=== PATIENT | female | born 1940 | race Caucasian/White ===

== ENCOUNTER 2023-08-18 19:51 | Observation (INO) | payer MEDICARE, OTHER ==
[2023-08-18] MEDS ORDERED: NITROGLYCERIN OINT 1 INCH/GM PACKET TOPICAL STA (20:09)
[2023-08-18] MEDS ORDERED: ASPIRIN 81 MG PO STA (20:09)
[2023-08-18 20:31] LABS: Basophils % (A) 1 %; Eosinophils # (A) 0.3 k/uL (0-0.7); Eosinophils % (A) 3 %; HCT 32.8 % (34.0-46.0); HGB 10.6 gm/dL (11.4-16.0); Lymphocytes % (A) 34 %; MCH 29.5 pg (25.0-35.0); MCHC 32.2 g/dL (31.0-37.0); MCV 91.4 fL (80.0-100.0); Mean Platelet Volume 8.1; Monocytes # (A) 0.4 k/uL (0-1.0); Monocytes % (A) 5 %; Neutrophils # (A) 4.9 k/uL (1.3-7.7); Neutrophils % (A) 56 %; Platelet Count 245 k/uL (150-450); RBC 3.58 m/uL (3.80-5.40); RDW 14.4 % (11.5-15.5); WBC 8.8 k/uL (3.8-10.6)
[2023-08-18 20:45] LABS: ALT 13 U/L (4-34); African American GFR (CKD) 75 (>60 ml/min/1.73 sqM); Albumin 3.2 g/dL (3.5-5.0); Anion Gap 11 mmol/L; Blood Urea Nitrogen 26 mg/dL (7-17); Calcium 8.4 mg/dL (8.4-10.2); Carbon Dioxide 26 mmol/L (22-30); Chloride 98 mmol/L (98-107); Glucose 175 mg/dL (74-99); Non-African American GFR(CKD) 65 (>60 ml/min/1.73 sqM); Sodium 135 mmol/L (137-145); Total Bilirubin 0.3 mg/dL (0.2-1.3); Total Protein 5.9 g/dL (6.3-8.2)
[2023-08-18 20:51] LABS: AST 29 U/L (14-36); Alkaline Phosphatase 79 U/L (38-126); INR 0.9 (<1.2); Potassium 3.9 mmol/L (3.5-5.1); Prothrombin Time 10.3 sec (10.0-12.5)
[2023-08-18 20:52] LABS: Magnesium 1.8 mg/dL (1.6-2.3)
[2023-08-18 20:53] LABS: NT-Pro-B-Type Natriuretic Pept 481 pg/mL
[2023-08-18 21:04] LABS: Partial Thromboplastin Time 19.4 sec (22.0-30.0)
--- NOTE | 2023-08-18 21:04 | XR ---
EXAMINATION TYPE: XR chest 2V DATE OF EXAM: 08/18/2023 8:45 PM CLINICAL INDICATION:Female, 83 years old with history of Chest Pain; PHH COMPARISON: None TECHNIQUE: XR chest 2V Frontal and lateral views of the chest. FINDINGS: Lungs/Pleura: There is no evidence of pleural effusion, focal consolidation, or pneumothorax. Pulmonary vascularity: Unremarkable. Heart/mediastinum: Cardiomediastinal silhouette is unremarkable. Atherosclerotic calcifications are seen in the aorta. Two lead cardiac conduction device overlying the left hemithorax with lead tips pr ojecting over the right ventricle and right atrium. Musculoskeletal: No acute osseous pathology. Midline sternotomy wires and surgical clips project over the mediastinum. IMPRESSION: Cardiomegaly and mild pulmonary vascular congestion. Correlate with BNP for congestive heart failure.
[2023-08-18] MEDS ORDERED: methylPREDNISolone SOD SUCCI 125 MG/2 ML VIAL IV STA (21:27)
[2023-08-18] MEDS ORDERED: diphenhydrAMINE 50 MG/ML 1 ML VIAL IVP STA (21:27)
--- NOTE | 2023-08-18 22:23 | CT ---
EXAMINATION TYPE: CT angio chest CT DLP: 551.2 mGycm, Automated exposure control for dose reduction was used. DATE OF EXAM: 08/18/2023 9:55 PM COMPARISON: Chest radiograph same day. CLINICAL INDICATION:Female, 83 years old with history of pulmonary embolism suspected; Suspected PE. TECHNIQUE/CONTRAST: CTA scan of the thorax is performed with IV Contrast, patient injected with 100 ml mL of Isovue 300, MIP images are created and reviewed these are created on a separate workstation.. FINDINGS: Pulmonary Artery: There is no evidence for a filling defect within the pulmonary vasculature to sugge st acute pulmonary embolism. The pulmonary artery is of normal size. Lungs/Pleura: No evidence of focal consolidation, pleural effusion or pneumothorax. Airway: Large airways are patent. Heart: Heart is within normal limits for size. There is cardiac conduction leads in appropriate posit ion. Left atrial appendage occlusion device is present. Vasculature: No evidence of aortic aneurysm. Mediastinum: No gross evidence of adenopathy. Musculoskeletal: Severe degenerative disc disease changes are present throughout the thoracolumbar sp ine.severe degeneration changes of the shoulders. Soft Tissues: Unremarkable. Lower neck: No significant findings. Upper Abdomen: No significant findings. IMPRESSION: 1. No evidence of pulmonary embolism. 2. No evidence for acute thoracic process. 3. Severe degeneration changes of the spine. 4. Postsurgical change the heart. Follow up recommendations for incidental pulmonary nodules, if there are any, are per [employer] or [employer].
--- NOTE | 2023-08-18 22:33 | ED ---
Chest Pain HPI - General Chief Complaint: Chest Pain Stated Complaint: Chest Pain Time Seen by Provider: 08/18/23 19:58 Source: patient, EMS Mode of arrival: EMS Limitations: no limitations - History of Present Illness Initial Comments: This 83-year-old female presents with complaint of some chest pain. She states that it just started this evening. It was a sharp pain in the midsternal region. There is no radiation. She denies any shortness of breath. It occurred at rest. She does relate a history of cardiac disease. She had a three-vessel CABG in 1995. She cannot remember the last time she had a stress test. 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 She does complain of some chronic right leg pain and swelling which is unchanged. She denies any cough or fever. No other complaints or modifying factors. She does present via EMS and they gave her sublingual nitroglycerin which resolved her chest pain. Also receives an aspirin via EMS. - Related Data Home Medications Medication Instructions Recorded Confirmed ARIPiprazole [Abilify] 5 mg PO DAILY@0800 08/18/23 08/18/23 Acetaminophen [Tylenol Extra 500 mg PO TID@0600,1400,2200 08/18/23 08/18/23 Strength] Acetaminophen-Codeine 300-30mg 1 tab PO HS@199908/18/23 08/18/23 [Tylenol w/codeine #3] Acetaminophen-Codeine 300-30mg 1 tab PO Q8H PRN 08/18/23 08/18/23 [Tylenol w/codeine #3] Aspirin 81 mg PO DAILY@0800 08/18/23 08/18/23 Atorvastatin [Lipitor] 20 mg PO HS@199908/18/23 08/18/23 Cholecalciferol [Vitamin D3 (25 25 mcg PO DAILY@0800 08/18/23 08/18/23 Mcg = 1000 Iu)] DULoxetine HCL [Cymbalta] 60 mg PO DAILY@0800 08/18/23 08/18/23 Docusate Sodium [Dok] 100 mg PO BID@0800,1600 08/18/23 08/18/23 Donepezil [Aricept] 10 mg PO HS@199908/18/23 08/18/23 Dulaglutide [Trulicity] 1.5 mg SQ SA 08/18/23 08/18/23 EPINEPHrine (Auto Inject) [Epipen] 0.3 mg IM ONCE PRN 08/18/23 08/18/23 Famotidine [Pepcid] 20 mg PO DAILY@0800 08/18/23 08/18/23 Furosemide [Lasix] 20 mg PO DAILY@0800 08/18/23 08/18/23 Gabapentin [Neurontin] 100 mg PO TID@0600,1400,2200 08/18/23 08/18/23 Insulin Glargine,Hum.rec.anlog 22 units SQ HS@199908/18/23 08/18/23 [Lantus Solostar Pen] Losartan [Cozaar] 25 mg PO DAILY@0800 08/18/23 08/18/23 Magnesium Hydroxide [Milk of 2,400 mg PO DAILY PRN 08/18/23 08/18/23 Magnesia] Magnesium Oxide [Mag-Ox] 400 mg PO BID@0800,1600 08/18/23 08/18/23 Melatonin 5 mg PO HS@219908/18/23 08/18/23 Multivitamins, Thera [Multivitamin 1 tab PO DAILY@0800 08/18/23 08/18/23 (formulary)] NIFEdipine [Adalat CC] 30 mg PO DAILY@0800 08/18/23 08/18/23 Nitroglycerin Sl Tabs [Nitrostat] 0.4 mg SUBLINGUAL Q5M PRN 08/18/23 08/18/23 allopurinoL [Zyloprim] 100 mg PO BID@0800,1600 08/18/23 08/18/23 cycloSPORINE 0.05% OPHTH SOLN 1 applicator BOTH EYES 08/18/23 08/18/23 [Restasis] BID@0800,1999 oxyBUTYnin chloride [oxyBUTYnin 5 mg PO DAILY@0800 08/18/23 08/18/23 chloride ER] rOPINIRole HCL [Requip] 4 mg PO TID@0600,1400,2200 08/18/23 08/18/23 Allergies Allergy/AdvReac Type Severity Reaction Status Date / Time adhesive tape Allergy Unknown Verified 08/18/23 20:13 bee venom protein (honey bee) Allergy Unknown Verified 08/18/23 20:13 coffee (Coffea arabica) Allergy Unknown Verified 08/18/23 20:13 hydrocodone Allergy Rash/Hives Verified 08/18/23 20:13 Iodinated Contrast Media Allergy Unknown Verified 08/18/23 20:13 pregabalin [From Lyrica] Allergy Unknown Verified 08/18/23 20:13 tositumomab iodine-131 Allergy Unknown Verified 08/18/23 20:13 tramadol Allergy Unknown Verified 08/18/23 20:13 tree nut [Pecan] Allergy Unknown Verified 08/18/23 20:13 seafood Allergy Swelling Uncoded 08/18/23 21:13 Review of Systems ROS Statement: Those systems with pertinent positive or pertinent negative responses have been documented in the HPI. ROS Other: All systems not noted in ROS Statement are negative. Past Medical History Past Medical History: Myocardial Infarction ([place]) Additional Past Medical History / Comment(s): [place] 1995 History of Any Multi-Drug Resistant Organisms: MRSA Past Surgical History: Adenoidectomy, Appendectomy Smoking Status: Never smoker Past Alcohol Use History: None Reported Past Drug Use History: None Reported General Exam - General Exam Comments Initial Comments: GENERAL: The patient is well nourished and well hydrated. VITAL SIGNS: Heart rate, blood pressure, respiratory rate reviewed as recorded in nurse's notes. EYES: Pupils are round and reactive. Extraocular movements are intact. No conjunctival / lid redness or swelling. ENT: No external evidence of injury, swelling, or ecchymosis. Airway is patent. Throat is clear. NECK: Nontender. No swelling or evidence of injury. No subcutaneous emphysema. Trachea is midline. No thyroid mass. HEART: Regular rate and rhythm. Good peripheral pulses. LUNGS/CHEST: Breath sounds clear and equal bilaterally. No rales, rhonchi, or wheezes. No ecchymosis, subcutaneous emphysema, or tenderness. ABDOMEN: Abdomen soft without tenderness. No palpable masses or organomegaly. No peritoneal signs. No abdominal wall swelling or ecchymosis. EXTREMITIES: No extremity tenderness. Normal muscle tone and function. No thoracolumbar tenderness. NEUROLOGIC: Sensation is grossly intact. Cranial nerve exam reveals face is symmetrical, tongue is midline, speech is clear. SKIN: No abrasions or ecchymosis is noted. No induration or masses noted. PSYCHIATRIC: Alert and oriented. Appropriate behavior and judgment. Limitations: no limitations Course Vital Signs 08/18/23 08/18/23 19:54 21:38 Temperature 97.7 F Pulse Rate 77 71 Respiratory 19 19 Rate Blood Pressure 139/60 140/56 O2 Sat by Pulse 99 99 Oximetry Chest Pain [facility] The patient was seen and examined. All diagnostics are reviewed. The patient is placed on a jet operator and no ectopy is identified. The EKG does show an electronic atrial pacemaker. Heart rate is 80. There is no acute ST or T wave changes noted per my interpretation. The intervals are normal except for an elevated NM interval of 229. She does receive some Nitropaste and remains chest pain-free. The chest x-ray doesn't show any acute processes per my interpretation. The laboratory came back showing elevation of the d-dimer. A CT angiogram of the chest was done and this does not show any evidence of pulmonary embolism. The possibility of acute coronary syndrome certainly is plausible. She has not had a cardiac workup and quite some time. It is felt as though she benefit from admission to the hospital and further cardiac workup. The patient is agreeable. Case is discussed with internal medicine and they're agreeable with admission. Cardiology will be consulted. Was pt. sent in by a medical professional or institution (, PA, ORDER EXPEDITER, urgent care, hospital, or senior living...) When possible be specific @ -[No] Did you speak to anyone other than the patient for history (EMS, parent, family, police, friend...)? What history was obtained from this source @ -[No] Did you review nursing and triage notes (agree or disagree)? Why? @ -[I reviewed and agree with nursing and triage notes] Were old charts reviewed (outside hosp., previous admission, EMS record, old EKG, old radiological studies, urgent care reports/EKG's, senior living records)? Report findings @ -[No old charts were reviewed] Differential Diagnosis (chest pain, altered mental status, abdominal pain women, abdominal pain men, vaginal bleeding, weakness, fever, dyspnea, syncope, headache, dizziness, GI bleed, back pain, seizure, CVA, palpatations, mental health, musculoskeletal)? @ -Pulmonary embolism, musculoskeletal chest pain, costochondritis, unstable angina, acute coronary syndrome. EKG interpreted by me (3pts min.). @ -[As above] X-rays interpreted by me (1pt min.). @ -As above CT interpreted by me (1pt min.). @ -As above U/S interpreted by me (1pt. min.). @ -[None done] What testing was considered but not performed or refused? (CT, X-rays, U/S, labs)? Why? @ -[None] What meds were considered but not given or refused? Why? @ -[None] Did you discuss the management of the patient with other professionals (professionals i.e. , PA, ORDER EXPEDITER, lab, RT, psych nurse, high school social studies tutor, patent litigation associate, teacher, tactical intelligence officer, case management assistant)? Give summary @ -Is discussed with internal medicine. Was smoking cessation discussed for >3mins.? @ -[No] Was critical care preformed (if so, how long)? @ -[No] Were there social determinants of health that impacted care today? How? (Homelessness, low income, unemployed, alcoholism, drug addiction, transportation, low edu. Level, literacy, decrease access to med. care, half-way, rehab)? @ -[No] Was there de-escalation of care discussed even if they declined (Discuss DNR or withdrawal of care, Hospice)? DNR status @ -[No] What co-morbidities impacted this encounter? (DM, HTN, Smoking, COPD, CAD, Cancer, CVA, ARF, Chemo, Hep., AIDS, mental health diagnosis, sleep apnea, morbid obesity)? @ -Coronary artery disease. Was patient admitted / discharged? Hospital course, mention meds given and route, prescriptions, significant lab abnormalities, going to OR and other pertinent info. @ -She was admitted, see above Undiagnosed new problem with uncertain prognosis? @ -[No] Drug Therapy requiring intensive monitoring for toxicity (Heparin, Nitro, Insulin, Cardizem)? @ -[No] Were any procedures done? @ -[No] Diagnosis/symptom? @ -Chest pain, unstable angina Acute, or Chronic, or Acute on Chronic? @ -Acute and chronic Uncomplicated (without systemic symptoms) or Complicated (systemic symptoms)? @ -Complicated Side effects of treatment? @ -[No] Exacerbation, Progression, or Severe Exacerbation? @ -[No] Poses a threat to life or bodily function? How? (Chest pain, [place], [place], pneumonia, PE, COPD, DKA, ARF, appy, cholecystitis, CVA, Diverticulitis, Homicidal, Suicidal, threat to staff... and all critical care pts) @ -Potentially yes. Disposition Clinical Impression: Chest pain, Unstable angina pectoris Disposition: ADMITTED IP TO THIS HOSP Condition: Fair Is patient prescribed a controlled substance at d/c from ED?: No Time of Disposition: 22:40 Decision Date: 08/18/23 Decision Time: 22:40
[2023-08-18] MEDS ORDERED: NITROGLYCERIN SL TABS 0.4 MG TAB SUBLINGUAL PRN (22:41)
[2023-08-18] MEDS ORDERED: Acetaminophen-Codeine 300-30mg TAB PO PRN (22:43)
[2023-08-18] MEDS ORDERED: MAGNESIUM HYDROXIDE 2,400 MG/30 ML CUP PO PRN (22:43)
[2023-08-18] MEDS: NITROGLYCERIN OINT 1 INCH/GM PACKET TOPICAL SCH (23:43)
[2023-08-19] MEDS ORDERED: ATORVASTATIN 80 MG TAB PO STA (01:04)
--- NOTE | 2023-08-19 01:05 | P.HPIM ---
History of Present Illness H&P Date: 08/19/23 Patient is a 83-year-old female with a PMH of CAD status post CABG, type II DM, hypertension, hyperlipidemia who presents to the emergency room with complaints of chest discomfort. Patient reports that she was in her usual state of health until around 5 PM earlier today when she suddenly developed the chest tightness, substernal, nonradiating, 8 out of 10 on maximal intensity, with associated bk rtness of breath. She reports the pain improved significantly with sublingual nitroglycerin and gradually resolved over the next few hours. She reported feeling at her baseline at the time of interview. Denied experiencing fever, chills, cough. Also denied nausea, vomiting, abdominal pain, diarrhea. In the emergency room a chest CTA was unremarkable with EKG showing a-paced rhythm at [address]/T-wave changes noted as reviewed by me. Laboratory evaluation was remarkable for troponin less than 0.012, proBNP 481, glucose 175, BUN 26, creatinine 0.84, d-dimer 1.07, and hemoglobin 10.6 (no prior available for baseline comparison). ED documentation reviewed and case discussed with ED provider. Review of systems: Pertinent positives and negatives as discussed in HPI, a complete review of systems was performed and all other systems are negative. Physical examination: Vital signs reviewed General: non toxic, no distress, appears at stated age, obese Derm: no unusual rashes/lesions, warm Head: atraumatic, normocephalic, symmetric Eyes: EOMI, no lid lag, anicteric sclera, pupils equal round reactive to light ENT: Nose and ears atraumatic Neck: No cervical lymphadenopathy, trachea midline, supple Mouth: no lip lesion, mucus membranes moist Cardiovascular: S1S2 reg, no murmur, positive dorsalis pedis pulse bilateral, no edema Lungs: CTA bilateral, no rhonchi, no rales, no accessory muscle use Abdominal: soft, nontender to palpation, no guarding Ext: muscle strength 5 out of 5 in all 4 extremities grossly, no gross muscle atrophy, no contractures, Neuro: CN II-XI grossly intact, no gross focal neuro deficits Psych: Alert, oriented, appropriate affect Assessment: Chest pain, rule out ACS Chronic conditions: Type II DM, hypertension, hyperlipidemia Imaging: In the emergency room a chest CTA was unremarkable with EKG showing a-paced rhythm at [address]/T-wave changes noted as reviewed by me. Data Review: Laboratory evaluation was remarkable for troponin less than 0.012, proBNP 481, glucose 175, BUN 26, creatinine 0.84, d-dimer 1.07, and hemoglobin 10.6 (no prior available for baseline comparison). Plan: Cardiology consulted Cardiac monitoring Trend troponin Continue with aspirin and Lipitor Continue with home medications Insulin sliding scale with blood glucose monitoring DVT prophylaxis: Lovenox Subq The patient is admitted with an anticipated less than 2 midnight stay for evaluation of chest pain CODE STATUS: Full Code Discussed with: Patient Anticipated discharge place: Home Past Medical History Past Medical History: Myocardial Infarction ([place]) Additional Past Medical History / Comment(s): [place] 1995 Last Myocardial Infarction Date:: unknown History of Any Multi-Drug Resistant Organisms: MRSA Date of last positivie culture/infection: ukklauswn MDRO Source:: unknown Past Surgical History: Adenoidectomy, Appendectomy Smoking Status: Never smoker Past Alcohol Use History: None Reported Past Drug Use History: None Reported Medications and Allergies Home Medications Medication Instructions Recorded Confirmed Type ARIPiprazole [Abilify] 5 mg PO DAILY@0800 08/18/23 08/18/23 History Acetaminophen [Tylenol Extra 500 mg PO TID@0600,1400,2200 08/18/23 08/18/23 History Strength] Acetaminophen-Codeine 300-30mg 1 tab PO HS@199908/18/23 08/18/23 History [Tylenol w/codeine #3] Acetaminophen-Codeine 300-30mg 1 tab PO Q8H PRN 08/18/23 08/18/23 History [Tylenol w/codeine #3] Aspirin 81 mg PO DAILY@0800 08/18/23 08/18/23 History Atorvastatin [Lipitor] 20 mg PO HS@199908/18/23 08/18/23 History Cholecalciferol [Vitamin D3 (25 25 mcg PO DAILY@0800 08/18/23 08/18/23 History Mcg = 1000 Iu)] DULoxetine HCL [Cymbalta] 60 mg PO DAILY@0800 08/18/23 08/18/23 History Docusate Sodium [Dok] 100 mg PO BID@0800,1600 08/18/23 08/18/23 History Donepezil [Aricept] 10 mg PO HS@199908/18/23 08/18/23 History Dulaglutide [Trulicity] 1.5 mg SQ SA 08/18/23 08/18/23 History EPINEPHrine (Auto Inject) [Epipen] 0.3 mg IM ONCE PRN 08/18/23 08/18/23 History Famotidine [Pepcid] 20 mg PO DAILY@0800 08/18/23 08/18/23 History Furosemide [Lasix] 20 mg PO DAILY@0800 08/18/23 08/18/23 History Gabapentin [Neurontin] 100 mg PO TID@0600,1400,2200 08/18/23 08/18/23 History Insulin Glargine,Hum.rec.anlog 22 units SQ HS@199908/18/23 08/18/23 History [Lantus Solostar Pen] Losartan [Cozaar] 25 mg PO DAILY@0800 08/18/23 08/18/23 History Magnesium Hydroxide [Milk of 2,400 mg PO DAILY PRN 08/18/23 08/18/23 History Magnesia] Magnesium Oxide [Mag-Ox] 400 mg PO BID@0800,1600 08/18/23 08/18/23 History Melatonin 5 mg PO HS@219908/18/23 08/18/23 History Multivitamins, Thera [Multivitamin 1 tab PO DAILY@0800 08/18/23 08/18/23 History (formulary)] NIFEdipine [Adalat CC] 30 mg PO DAILY@0800 08/18/23 08/18/23 History Nitroglycerin Sl Tabs [Nitrostat] 0.4 mg SUBLINGUAL Q5M PRN 08/18/23 08/18/23 History allopurinoL [Zyloprim] 100 mg PO BID@0800,1600 08/18/23 08/18/23 History cycloSPORINE 0.05% OPHTH SOLN 1 applicator BOTH EYES 08/18/23 08/18/23 History [Restasis] BID@08,1999 oxyBUTYnin chloride [oxyBUTYnin 5 mg PO DAILY@0800 08/18/23 08/18/23 History chloride ER] rOPINIRole HCL [Requip] 4 mg PO TID@0600,1400,2200 08/18/23 08/18/23 History Allergies Allergy/AdvReac Type Severity Reaction Status Date / Time adhesive tape Allergy Unknown Verified 08/18/23 20:13 bee venom protein (honey bee) Allergy Unknown Verified 08/18/23 20:13 coffee (Coffea arabica) Allergy Unknown Verified 08/18/23 20:13 hydrocodone Allergy Rash/Hives Verified 08/18/23 20:13 Iodinated Contrast Media Allergy Unknown Verified 08/18/23 20:13 pregabalin [From Lyrica] Allergy Unknown Verified 08/18/23 20:13 tositumomab iodine-131 Allergy Unknown Verified 08/18/23 20:13 tramadol Allergy Unknown Verified 08/18/23 20:13 tree nut [Pecan] Allergy Unknown Verified 08/18/23 20:13 seafood Allergy Swelling Uncoded 08/18/23 21:13 Physical Exam Vitals: Vital Signs Temp Pulse Resp BP Pulse Ox 08/18/23 21:38 71 19 140/56 99 08/18/23 19:54 97.7 F 77 19 139/60 99 Intake and Output 08/18/23 08/18/23 08/19/23 14:59 22:59 06:59 Other: Weight 81.647 kg Results CBC & Chem 7: 08/18/23 20:14 08/18/23 20:14 Labs: Abnormal Lab Results - Last 24 Hours (Table) 08/18/23 08/18/23 08/18/23 Range/Units 20:14 20:14 20:14 RBC 3.58 L (3.80-5.40) m/uL Hgb 10.6 L (11.4-16.0) gm/dL Hct 32.8 L (34.0-46.0) % APTT 19.4 L (22.0-30.0) sec D-Dimer 1.07 H (<0.60) mg/L FEU Sodium 135 L (137-145) mmol/L BUN 26 H (7-17) mg/dL Glucose 175 H (74-99) mg/dL Total Protein 5.9 L (6.3-8.2) g/dL Albumin 3.2 L (3.5-5.0) g/dL
[2023-08-19] MEDS: ACETAMINOPHEN TAB 500 MG TAB PO SCH ×2 (05:36→13:47)
[2023-08-19] MEDS: rOPINIRole HCL 4 MG TABLET PO SCH ×2 (05:36→16:18)
[2023-08-19] MEDS: GABAPENTIN 100 MG CAP PO SCH ×2 (05:36→13:48)
[2023-08-19] MEDS: NITROGLYCERIN OINT 1 INCH/GM PACKET TOPICAL SCH (05:48)
[2023-08-19 07:50] LABS: Glucose,Whole Blood 262 mg/dL (70-110)
[2023-08-19] MEDS ORDERED: cycloSPORINE 0.05% OPHTH 0.4 ML DROPERETTE BOTH EYES SCH (08:00)
[2023-08-19] MEDS ORDERED: FAMOTIDINE 20 MG TAB PO SCH (08:00)
[2023-08-19] MEDS ORDERED: OXYBUTYNIN XL 5 MG TAB.ER.24 PO SCH (08:00)
[2023-08-19] MEDS ORDERED: ARIPiprazole 5 MG TAB PO SCH (08:00)
[2023-08-19] MEDS ORDERED: MULTIVITAMINS, THERA 1 EACH TAB PO SCH (08:00)
[2023-08-19] MEDS ORDERED: ASPIRIN 81 MG PO SCH (08:00)
[2023-08-19] MEDS ORDERED: CHOLECALCIFEROL 25 MCG (1000 IU) TABLET PO SCH (08:00)
[2023-08-19] MEDS ORDERED: FUROSEMIDE 20 MG TAB PO SCH (08:00)
[2023-08-19] MEDS ORDERED: DULoxetine HCL 60 MG CAPSULE.DR PO SCH (08:00)
[2023-08-19] MEDS ORDERED: LOSARTAN 25 MG TAB PO SCH (08:00)
[2023-08-19] MEDS ORDERED: NIFEdipine XL 30 MG TAB.ER.24 PO SCH (08:00)
[2023-08-19] MEDS ORDERED: AMINOPHYLLINE 500 MG/20 ML VIAL IV PRN (08:30)
[2023-08-19] MEDS ORDERED: CAFFEINE CITRATE 60 MG/3 ML VIAL IV PRN (08:30)
[2023-08-19] MEDS ORDERED: REGADENOSON 0.4 MG/5 ML SYRINGE IV PRN (08:30)
[2023-08-19 08:51] LABS: Chol/HDL Ratio 2.34 Ratio; LDL Cholesterol,Calculated 64.7 mg/dL (0.0-131.0)
[2023-08-19] MEDS ORDERED: ASPIRIN 325 MG TAB PO SCH (09:00)
[2023-08-19] MEDS ORDERED: ENOXAPARIN 40 MG/0.4 ML SYRINGE SQ SCH (09:00)
--- NOTE | 2023-08-19 10:27 | P.CRDCN ---
History of Present Illness History of present illness: HISTORY OF PRESENT ILLNESS: This is a 83-year-old female with a past medical history significant for coronary artery disease with previous three-vessel CABG, congestive heart failure, hypertension, hyperlipidemia, diabetes, and mild dementia. Patient states she has not followed with a product trainer in many years. We have been asked to see the patient in consultation for chest pain. Patient examined at the bedside. Patient states she currently resides at [facility]. She states yesterday she was sitting down when she began to have chest discomfort. She describes the pain as a pressure type sensation like somebody was sitting on her chest. She denied any radiation of the pain. She states the pain lasted for a couple hours and finally resolved when she received sublingual nitro on the way to the hospital. At the time of examination she denies any chest pain or pressure. She denies any shortness of breath. States she is not very active overall. She does report walking with a cane and also uses a wheelchair. Vital signs are stable. * EKG reveals atrial paced rhythm * Chest xray cardiomegaly and mild pulmonary vascular congestion. * Chest CTA: Negative for pulmonary embolism * Laboratory data: Troponin negative 3. ProBNP 481. * Current home cardiac medications include aspirin 81 mg daily, Lasix 20 mg daily, losartan 25 mg daily, nifedipine 30 mg daily * No previous echocardiogram available on EMR for review REVIEW OF SYSTEMS: At the time of my exam: CONSTITUTIONAL: Denies fever or chills. HEENT: Denies blurred vision, vision changes, or eye pain. Denies hemoptysis CARDIOVASCULAR: Denies chest pain. Denies orthopnea. Denies PND. Denies palpitations RESPIRATORY: Denies shortness of breath. GASTROINTESTINAL: Denies abdominal pain. Denies nausea or vomiting. HEMATOLOGIC: Denies bleeding disorders. GENITOURINARY: Denies any blood in urine. SKIN: Denies pruitis. Denies rash. PHYSICAL EXAM: VITAL SIGNS: Reviewed. GENERAL: Well-developed in no acute distress. HEENT: Head is normocephalic. Pupils are equal, round. Sclerae anicteric. Mucous membranes of the mouth are moist. Neck supple. No JVD or thyromegaly LUNGS: Respirations even and unlabored. Lungs essentially clear to auscultation bilaterally. HEART: Regular rate and rhythm. S1 and S2 heard. Systolic murmur noted ABDOMEN: Soft. Nondistended. Nontender. EXTREMITIES: Normal range of motion. No clubbing or cyanosis. Peripheral pulses intact. No lower extremity edema NEUROLOGIC: Awake and alert. Oriented x 3. ASSESSMENT: Chest pain, troponins negative 3 Coronary artery disease with previous three-vessel CABG, details unknown Chronic congestive heart failure, type unknown, currently euvolemic History of pacemaker implantation Hypertension Hyperlipidemia Diabetes Mild dementia PLAN: An acute coronary event has been ruled out Obtain 2-D echo to assess cardiac structure and function Resume home cardiac medications Patient to undergo Lexiscan stress test today Further recommendations pending patient's course Patient to follow-up post discharge with Dr. Haynes Nurse practitioner note has been reviewed by physician. Signing provider agrees with the documented findings, assessment, and plan of care. Past Medical History Past Medical History: Myocardial Infarction ([place]) Additional Past Medical History / Comment(s): [place] 1995 Last Myocardial Infarction Date:: unknown History of Any Multi-Drug Resistant Organisms: MRSA Date of last positivie culture/infection: uknown MDRO Source:: unknown Past Surgical History: Adenoidectomy, Appendectomy Smoking Status: Never smoker Past Alcohol Use History: None Reported Past Drug Use History: None Reported Medications and Allergies Home Medications Medication Instructions Recorded Confirmed Type ARIPiprazole [Abilify] 5 mg PO DAILY@0800 08/18/23 08/18/23 History Acetaminophen [Tylenol Extra 500 mg PO TID@0600,1400,2200 08/18/23 08/18/23 History Strength] Acetaminophen-Codeine 300-30mg 1 tab PO HS@199908/18/23 08/18/23 History [Tylenol w/codeine #3] Acetaminophen-Codeine 300-30mg 1 tab PO Q8H PRN 08/18/23 08/18/23 History [Tylenol w/codeine #3] Aspirin 81 mg PO DAILY@0800 08/18/23 08/18/23 History Atorvastatin [Lipitor] 20 mg PO HS@199908/18/23 08/18/23 History Cholecalciferol [Vitamin D3 (25 25 mcg PO DAILY@0800 08/18/23 08/18/23 History Mcg = 1000 Iu)] DULoxetine HCL [Cymbalta] 60 mg PO DAILY@0800 08/18/23 08/18/23 History Docusate Sodium [Dok] 100 mg PO BID@0800,1600 08/18/23 08/18/23 History Donepezil [Aricept] 10 mg PO HS@199908/18/23 08/18/23 History Dulaglutide [Trulicity] 1.5 mg SQ SA 08/18/23 08/18/23 History EPINEPHrine (Auto Inject) [Epipen] 0.3 mg IM ONCE PRN 08/18/23 08/18/23 History Famotidine [Pepcid] 20 mg PO DAILY@0800 08/18/23 08/18/23 History Furosemide [Lasix] 20 mg PO DAILY@0800 08/18/23 08/18/23 History Gabapentin [Neurontin] 100 mg PO TID@0600,1400,2200 08/18/23 08/18/23 History Insulin Glargine,Hum.rec.anlog 22 units SQ HS@199908/18/23 08/18/23 History [Lantus Solostar Pen] Losartan [Cozaar] 25 mg PO DAILY@0800 08/18/23 08/18/23 History Magnesium Hydroxide [Milk of 2,400 mg PO DAILY PRN 08/18/23 08/18/23 History Magnesia] Magnesium Oxide [Mag-Ox] 400 mg PO BID@0800,1600 08/18/23 08/18/23 History Melatonin 5 mg PO HS@219908/18/23 08/18/23 History Multivitamins, Thera [Multivitamin 1 tab PO DAILY@0800 08/18/23 08/18/23 History (formulary)] NIFEdipine [Adalat CC] 30 mg PO DAILY@0800 08/18/23 08/18/23 History Nitroglycerin Sl Tabs [Nitrostat] 0.4 mg SUBLINGUAL Q5M PRN 08/18/23 08/18/23 History allopurinoL [Zyloprim] 100 mg PO BID@0800,1600 08/18/23 08/18/23 History cycloSPORINE 0.05% OPHTH SOLN 1 applicator BOTH EYES 08/18/23 08/18/23 History [Restasis] BID@0800,1999 oxyBUTYnin chloride [oxyBUTYnin 5 mg PO DAILY@0800 08/18/23 08/18/23 History chloride ER] rOPINIRole HCL [Requip] 4 mg PO TID@0600,1400,2200 08/18/23 08/18/23 History Allergies Allergy/AdvReac Type Severity Reaction Status Date / Time adhesive tape Allergy Unknown Verified 08/18/23 20:13 bee venom protein (honey bee) Allergy Unknown Verified 08/18/23 20:13 coffee (Coffea arabica) Allergy Unknown Verified 08/18/23 20:13 hydrocodone Allergy Rash/Hives Verified 08/18/23 20:13 Iodinated Contrast Media Allergy Unknown Verified 08/18/23 20:13 pregabalin [From Lyrica] Allergy Unknown Verified 08/18/23 20:13 tositumomab iodine-131 Allergy Unknown Verified 08/18/23 20:13 tramadol Allergy Unknown Verified 08/18/23 20:13 tree nut [Pecan] Allergy Unknown Verified 08/18/23 20:13 seafood Allergy Swelling Uncoded 08/18/23 21:13 Physical Exam Vitals: Vital Signs Temp Pulse Pulse Resp BP BP Pulse Ox 08/19/23 07:10 98.5 F 87 17 178/95 98 08/19/23 00:54 97.8 F 74 18 143/56 98 08/18/23 21:38 71 19 140/56 99 08/18/23 19:54 97.7 F 77 19 139/60 99 Intake and Output 08/18/23 08/19/23 08/19/23 22:59 06:59 14:59 Other: Voiding Method Diaper Incontinent # Voids 1 Weight 81.647 kg Results 08/18/23 20:14 08/18/23 20:14 Cardiac Enzymes 08/18/23 08/18/23 08/19/23 Range/Units 20:14 20:14 00:02 AST 29 (14-36) U/L Troponin I <0.012 <0.012 (0.000-0.034) ng/mL 08/19/23 Range/Units 03:06 AST (14-36) U/L Troponin I <0.012 (0.000-0.034) ng/mL Coagulation 08/18/23 Range/Units 20:14 PT 10.3 (10.0-12.5) sec APTT 19.4 L (22.0-30.0) sec CBC 08/18/23 Range/Units 20:14 WBC 8.8 (3.8-10.6) k/uL RBC 3.58 L (3.80-5.40) m/uL Hgb 10.6 L (11.4-16.0) gm/dL Hct 32.8 L (34.0-46.0) % Plt Count 245 (150-450) k/uL Comprehensive Metabolic Panel 08/18/23 Range/Units 20:14 Sodium 135 L (137-145) mmol/L Potassium 3.9 (3.5-5.1) mmol/L Chloride 98 (98-107) mmol/L Carbon Dioxide 26 (22-30) mmol/L BUN 26 H (7-17) mg/dL Creatinine 0.84 (0.52-1.04) mg/dL Glucose 175 H (74-99) mg/dL Calcium 8.4 (8.4-10.2) mg/dL AST 29 (14-36) U/L ALT 13 (4-34) U/L Alkaline Phosphatase 79 (38-126) U/L Total Protein 5.9 L (6.3-8.2) g/dL Albumin 3.2 L (3.5-5.0) g/dL Current Medications Generic Name Dose Route Start Last Admin Trade Name Freq PRN Reason Stop Dose Admin Acetaminophen 500 mg 08/19/23 06:00 08/19/23 05:36 Acetaminophen Tab 500 Mg Tab PO 500 mg TID@0600,1400,2200 [facility] Administration Acetaminophen/Codeine Phosphate 1 each 08/19/23 20:00 Acetaminophen-Codeine 300-30mg Tab PO HS@2000 [facility] Acetaminophen/Codeine Phosphate 1 each 08/18/23 22:43 Acetaminophen-Codeine 300-30mg Tab PO Q8H PRN Moderate to Severe Pain (4-10) Allopurinol 100 mg 08/19/23 08:00 Allopurinol 100 Mg Tab PO BID@0800,1600 [facility] Aripiprazole 5 mg 08/19/23 08:00 Aripiprazole 5 Mg Tab PO DAILY@0800 [facility] Aspirin 81 mg 08/19/23 08:00 Aspirin 81 Mg PO DAILY@0800 [facility] Atorvastatin Calcium 20 mg 08/19/23 20:00 Atorvastatin 20 Mg Tab PO HS@2000 [facility] Atorvastatin Calcium 80 mg 08/19/23 21:00 Atorvastatin 80 Mg Tab PO HS [facility] Cholecalciferol 25 mcg 08/19/23 08:00 Cholecalciferol 25 Mcg (1000 Iu) Tablet PO DAILY@0800 [facility] Cyclosporine 1 drops 08/19/23 08:00 Cyclosporine 0.05% Ophth 0.4 Ml Droperette BOTH EYES BID@0800,1999 [facility] Docusate Sodium 100 mg 08/19/23 08:00 Docusate 100 Mg Cap PO BID@0800,1600 [facility] Donepezil HCl 10 mg 08/19/23 20:00 Donepezil 10 Mg Tab PO HS@2000 [facility] Duloxetine HCl 60 mg 08/19/23 08:00 Duloxetine Hcl 60 Mg Capsule.Dr PO DAILY@0800 [facility] Enoxaparin Sodium 40 mg 08/19/23 09:00 Enoxaparin 40 Mg/0.4 Ml Syringe SQ DAILY [facility] Epinephrine HCl 0.3 mg 08/19/23 09:00 Epinephrine 1 Mg/Ml 1 Ml Vial IM ONCE PRN Anaphylaxis Famotidine 20 mg 08/19/23 08:00 Famotidine 20 Mg Tab PO DAILY@0800 [facility] Furosemide 20 mg 08/19/23 08:00 Furosemide 20 Mg Tab PO DAILY@0800 [facility] Gabapentin 100 mg 08/19/23 06:00 08/19/23 05:36 Gabapentin 100 Mg Cap PO 100 mg TID@0600,1400,2200 [facility] Administration Insulin Aspart 0 unit 08/19/23 07:30 Insulin Aspart (Novolog) 100 Unit/Ml Vial SQ [facility] Protocol Insulin Detemir 22 unit 08/19/23 20:00 Insulin Detemir (Levemir) 100 Unit/Ml Syr SQ HS@1999 [facility] Losartan Potassium 25 mg 08/19/23 08:00 Losartan 25 Mg Tab PO DAILY@0800 [facility] Magnesium Hydroxide 2,400 mg 08/18/23 22:43 Magnesium Hydroxide 2,400 Mg/30 Ml Cup PO DAILY PRN Constipation Magnesium Oxide 400 mg 08/19/23 08:00 Magnesium Oxide 400 Mg Tab PO BID@0800,1600 [facility] Melatonin 5 mg 08/19/23 22:00 Melatonin 5 Mg Tablet PO HS@2200 [facility] Multivitamins 1 each 08/19/23 08:00 Multivitamins, Thera 1 Each Tab PO DAILY@0800 [facility] Nifedipine 30 mg 08/19/23 08:00 Nifedipine Xl 30 Mg Tab.Er.24 PO DAILY@0800 [facility] Nitroglycerin 0.4 mg 08/18/23 22:41 Nitroglycerin Sl Tabs 0.4 Mg Tab SUBLINGUAL Q5M PRN Chest Pain Nitroglycerin 1 inch 08/19/23 00:00 08/19/23 05:48 Nitroglycerin Oint 1 Inch/Gm Packet TOPICAL Not Given Q6HR [facility] Oxybutynin Chloride 5 mg 08/19/23 08:00 Oxybutynin Xl 5 Mg Tab.Er.24 PO DAILY@0800 [facility] Ropinirole HCl 4 mg 08/19/23 06:00 08/19/23 05:36 Ropinirole Hcl 4 Mg Tablet PO 4 mg TID@0600,1400,2200 [facility] Administration Intake and Output 08/18/23 08/19/23 08/19/23 22:59 06:59 14:59 Other: Voiding Method Diaper Incontinent # Voids 1 Weight 81.647 kg 08/18/23 20:14 08/18/23 20:14
--- NOTE | 2023-08-19 12:09 | NM ---
EXAMINATION TYPE: NM stress lexiscan cardiolite DATE OF EXAM: 08/19/2023 COMPARISON: NONE CLINICAL INDICATION: Female, 83 years old with history of CP; TECHNIQUE: After the intravenous administration of 10.2 mCi Tc 99m Sestamibi - Cardiolite resting SP ECT images acquired 55 minutes post injection. The patient received 0.4mg Lexiscan, 25.4 mCi Tc 99m Sestamibi - Stress images obtained [address] injection FINDINGS: Review of stress and rest SPECT images demonstrates no distinct perfusion abnormality. Gated analysi s shows normal wall motion with an estimated left ventricular ejection fraction of 79 %. IMPRESSION: No scintigraphic evidence for reversible ischemia.
--- NOTE | 2023-08-19 12:25 | CA ---
Lexiscan Nuclear Stress Test Report Name: Jolene Roger Exam Date: 08/19/2023 10:23 Exam Location: [facility] Ht (in): 61 Wt (lb): 180 BSA: 1.81 Ordering Phys: Gin Claire Referring Phys: CINDY, Technologist: Melchor Herrera Age: 83 Gender: F : 1940 Procedure CPT: Indications: Reflex order-Stress test ICD-10 Codes: Patient History: CHEST PAIN, DIFFICULTY IN BREATHING, HTN, DIABETIC, ELEVATED CHOLESTEROL LEVELS, FAMILY HX OF HEART DISEASE, PRIOR OH, PRIOR CATH, PRIOR CABG X 3, COPD Medications: Meds past 24 hrs: Pretest Chest Pain: STRESS TEST Lexiscan Protocol Exercise Duration (min:sec): 02:[address] Depressions (mm): Angina Score: Ruiz Score: Resting HR (bpm): 74 Peak HR (bpm): 98 Resting BP (mmHg): 142 / 63 Peak BP (mmHg): 152 / 36 MPHR: 139 Target HR: 118 % MPHR: 71 METS: 1.0 Total Dose: Peak Dose: Atropine: Double Product: 91132 BP Response: Stress Termination: INFUSION COMPLETE Stress Symptoms: NO SYMPTOMS Stress Summary: ECG ANALYSIS Resting ECG: Stress ECG: CONCLUSIONS Nondiagnostic electrocardiogram stress test Dr. Den Haynes MD (Electronically Signed) Final Date: 19 August 2023 12:24
[2023-08-19] MEDS: INSULIN ASPART (NovoLOG) 100 UNIT/ML VIAL SQ SCH ×2 (12:36→13:47)
[2023-08-19 12:37] LABS: Glucose,Whole Blood 207 mg/dL (70-110)
[2023-08-19] MEDS: DOCUSATE 100 MG CAP PO SCH ×2 (13:33→16:15)
[2023-08-19] MEDS: allopurinoL 100 MG TAB PO SCH ×2 (13:34→16:15)
[2023-08-19] MEDS: MAGNESIUM OXIDE 400 MG TAB PO SCH ×2 (13:34→16:15)
[2023-08-19 15:29] VITALS: BP 137/61; PULSE 83; RESP 15; TEMP 97.8
--- NOTE | 2023-08-19 15:54 | P.DS ---
Providers Date of admission: 08/18/23 22:41 Expected date of discharge: 08/19/23 Attending physician: Lonnie Antony MD Consults: 08/18/23 22:41 Consult Physician Urgent Consulting Provider: Den Haynes Consult Reason/Comments: cp Do you want consulting provider notified?: Yes Primary care physician: Farrah Burroughs DO Hospital Course: Discharge Diagnosis: Chest pain, acute coronary event ruled out. History of CAD status post CABG and permanent pacemaker placement Hypertension Hyperlipidemia Insulin-dependent diabetes mellitus Hospital Course: Patient is a pleasant 83-year-old female with a past medical history of CAD status post CABG and permanent pacemaker placement, hypertension, hyperlipidemia, and insulin-dependent diabetes mellitus. She presented to the emergency department with a chief complaint of chest pain. Patient underwent cardiac workup. Upon arrival vital signs as follows blood pressure 139/60, heart rate 77, respiratory rate 19, temperature 97.7F, SpO2 99% on room air. EKG was completed showing atrial paced rhythm at 80 bpm . Chest x-ray completed negative for acute cardiopulmonary process. CT completed negative for PE and also negative for acute thoracic process. Labs completed and reviewed. CBC showing stable normocytic anemia with hemoglobin of 10.6. Coagulation profile showing a low PTT of 19.4 and slightly elevated d-dimer of 1.07. BMP revealing sodium 135, potassium 3.9, BUN 26, creatinine 0.84, and GFR of 65. Blood glucose was 175. Magnesium 1.8. Liver profile unremarkable. Initial troponin less than 0.012 with proBNP of 481. Patient was admitted under our services with consultation to cardiology. Troponins trended overnight all negative at less than 0.0123 draws. Lipid profile unremarkable. Patient was evaluated by cardiology and taken for stress testing. Valerie scan Stress test negative showing no evidence for reversible ischemia. Patient cleared from cardiac perspective for discharge recommending outpatient follow-up in their office in one week with Dr. Haynes. Medically, patient is free from any complaints stating full resolution of previous reported chest pain and vital signs stable with blood pressure 137/61, heart rate 83, respiratory rate 15, temp 97.8F, SpO2 100% on room air. Patient medically stable at this time recommending outpatient follow- up with PCP in 1-2 days and with spot welder line as recommended in 1 week. Physical exam: Patient seen and examined at bedside. She is free from any cardiac complaints at this time including chest pain, palpitations, shortness of breath, nausea, vomiting, or experiencing any numbness/tingling/weakness/swelling in his extremities. Vital signs reviewed and stable. General: Nontoxic, no distress and appears stated age. Derm: Skin warm and dry, normal coloration for ethnicity. Head: Atraumatic, normocephalic and symmetric. Eyes: EOMs intact, no lid lag, and anicteric sclera Mouth: no lip lesions, mucus membranes moist Cardiovascular: regular rate and rhythm with normal S1S2, systolic murmur, po sitive posterior tibial pulses bilaterally, and cap refill < 2 seconds. Pacemaker left anterior chest. Lungs: Respirations even, regular, and unlabored on room air. Lungs CTA bilaterally, no rhonchi, no rales, no wheezing, and no accessory muscle usage. Abdominal: soft, nontender to palpation, no guarding, no appreciable organomegaly Ext: ROM intact. No gross muscle atrophy, no edema, no contractures Neuro: Speech clear, face symmetrical and CN II-XII grossly intact with no noted focal neuro deficits Psych: Alert and oriented to person, place, time, and situation. Appropriate and pleasant affect. A total of 34 minutes of time were spent preparing this complex discharge summary. Pt was discharged on 08/19/23 at 3:47 PM Patient was seen independently by Nurse Practitioner. This document was prepared using [employer] dictation software. Please allow for errors in telephone sterilizer while rare they do occur. Jorge Ness NP rendered care for this patient independently, reviewed the findings and plan as documented in the note above. I did not physically speak with or examine the patient on this date. Patient Condition at Discharge: Stable Plan - Discharge Summary New Discharge Prescriptions: Continue Nitroglycerin Sl Tabs [Nitrostat] 0.4 mg SUBLINGUAL Q5M PRN PRN Reason: Chest Pain Magnesium Hydroxide [Milk of Magnesia] 2,400 mg PO DAILY PRN PRN Reason: Constipation EPINEPHrine (Auto Inject) [Epipen] 0.3 mg IM ONCE PRN PRN Reason: Anaphylaxis rOPINIRole HCL [Requip] 4 mg PO TID@0600,1400,2200 Acetaminophen [Tylenol Extra Strength] 500 mg PO TID@0600,1400,2200 cycloSPORINE 0.05% OPHTH SOLN [Restasis] 1 applicator BOTH EYES BID@0800,2000 Magnesium Oxide [Mag-Ox] 400 mg PO BID@0800,1600 Docusate Sodium [Dok] 100 mg PO BID@0800,1600 oxyBUTYnin chloride [oxyBUTYnin chloride ER] 5 mg PO DAILY@0800 Dulaglutide [Trulicity] 1.5 mg SQ SA Losartan [Cozaar] 25 mg PO DAILY@0800 Insulin Glargine,Hum.rec.anlog [Lantus Solostar Pen] 22 units SQ HS@1999 Atorvastatin [Lipitor] 20 mg PO HS@1999 Donepezil [Aricept] 10 mg PO HS@1999 Gabapentin [Neurontin] 100 mg PO TID@0600,1400,2200 #3 cap Acetaminophen-Codeine 300-30mg [Tylenol w/codeine #3] 1 tab PO Q8H PRN #3 tab PRN Reason: Moderate To Severe Pain (4-10) allopurinoL [Zyloprim] 100 mg PO BID@0800,1600 NIFEdipine [Adalat CC] 30 mg PO DAILY@0800 Multivitamins, Thera [Multivitamin (formulary)] 1 tab PO DAILY@0800 Melatonin 5 mg PO HS@2200 Furosemide [Lasix] 20 mg PO DAILY@0800 Famotidine [Pepcid] 20 mg PO DAILY@0800 DULoxetine HCL [Cymbalta] 60 mg PO DAILY@0800 Cholecalciferol [Vitamin D3 (25 Mcg = 1000 Iu)] 25 mcg PO DAILY@0800 Aspirin 81 mg PO DAILY@0800 Acetaminophen-Codeine 300-30mg [Tylenol w/codeine #3] 1 tab PO HS@1999 ARIPiprazole [Abilify] 5 mg PO DAILY@0800 Discharge Medication List ARIPiprazole [Abilify] 5 mg PO DAILY@0800 08/18/23 [History] Acetaminophen [Tylenol Extra Strength] 500 mg PO TID@0600,1400,2200 08/18/23 [History] Acetaminophen-Codeine 300-30mg [Tylenol w/codeine #3] 1 tab PO HS@199908/18/23 [History] Aspirin 81 mg PO DAILY@0800 08/18/23 [History] Atorvastatin [Lipitor] 20 mg PO HS@199908/18/23 [History] Cholecalciferol [Vitamin D3 (25 Mcg = 1000 Iu)] 25 mcg PO DAILY@0800 08/18/23 [ History] DULoxetine HCL [Cymbalta] 60 mg PO DAILY@0808/18/23 [History] Docusate Sodium [Dok] 100 mg PO BID@0800,1600 08/18/23 [History] Donepezil [Aricept] 10 mg PO HS@199908/18/23 [History] Dulaglutide [Trulicity] 1.5 mg SQ SA 08/18/23 [History] EPINEPHrine (Auto Inject) [Epipen] 0.3 mg IM ONCE PRN 08/18/23 [History] Famotidine [Pepcid] 20 mg PO DAILY@0808/18/23 [History] Furosemide [Lasix] 20 mg PO DAILY@0808/18/23 [History] Insulin Glargine,Hum.rec.anlog [Lantus Solostar Pen] 22 units SQ HS@199908/18/23 [History] Losartan [Cozaar] 25 mg PO DAILY@79908/18/23 [History] Magnesium Hydroxide [Milk of Magnesia] 2,400 mg PO DAILY PRN 08/18/23 [History] Magnesium Oxide [Mag-Ox] 400 mg PO BID@0800,159908/18/23 [History] Melatonin 5 mg PO HS@219908/18/23 [History] Multivitamins, Thera [Multivitamin (formulary)] 1 tab PO DAILY@0800 08/18/23 [History] NIFEdipine [Adalat CC] 30 mg PO DAILY@0808/18/23 [History] Nitroglycerin Sl Tabs [Nitrostat] 0.4 mg SUBLINGUAL Q5M PRN 08/18/23 [History] allopurinoL [Zyloprim] 100 mg PO BID@0800,1600 08/18/23 [History] cycloSPORINE 0.05% OPHTH SOLN [Restasis] 1 applicator BOTH EYES BID@799,199908/18/23 [History] oxyBUTYnin chloride [oxyBUTYnin chloride ER] 5 mg PO DAILY@0800 08/18/23 [History] rOPINIRole HCL [Requip] 4 mg PO TID@0600,1400,0 08/18/23 [History] Acetaminophen-Codeine 300-30mg [Tylenol w/codeine #3] 1 tab PO Q8H PRN #3 tab 08/19/23 [Rx] Gabapentin [Neurontin] 100 mg PO TID@0600,1400,2200 #3 cap 08/19/23 [Rx] Follow up Appointment(s)/Referral(s): Den Haynes MD [STAFF PHYSICIAN] - 1 Week Farrah Burroughs DO [Primary Care Provider] - 1-2 Days Patient Instructions/Handouts: Chest Pain (DC) Activity/Diet/Wound Care/Special Instructions: Activity: As tolerated. Take breaks as needed. Diet: Heart healthy and carb consistent diet. Avoid salts, or foods with hidden salts such as canned or boxed foods and frozen dinners. Extra salt makes your heart work harder and traps the fluid in your body for longer. Special Instructions: Take all of your medications as directed and remember to keep all of your doctor's appointments and follow-up as needed. Thank you for allowing us to participate in your care, it was truly a pleasure having you for our patient!!! Discharge Disposition: TRANSFER TO SNF/ECF
[2023-08-19] MEDS ORDERED: INSULIN DETEMIR (LEVEMIR) 100 UNIT/ML SYR SQ SCH (20:00)
[2023-08-19] MEDS ORDERED: Acetaminophen-Codeine 300-30mg TAB PO SCH (20:00)
[2023-08-19] MEDS ORDERED: ATORVASTATIN 20 MG TAB PO SCH (20:00)
[2023-08-19] MEDS ORDERED: DONEPEZIL 10 MG TAB PO SCH (20:00)
[2023-08-19] MEDS ORDERED: ATORVASTATIN 80 MG TAB PO SCH (21:00)
[2023-08-19] MEDS ORDERED: MELATONIN 5 MG TABLET PO SCH (22:00)
--- NOTE | 2023-08-20 09:18 | CA ---
Transthoracic Echo Report Name: Jolene Roger Age: 83 Gender: F : 1940 Exam Date: 08/19/2023 10:53 Exam Location: [facility] Ht (in): 61 Wt (lb): 180 Ordering Physician: Noe Null DO Attending/Referring Phys: [id number], Chaka Obiee Lead Developer Ashley Bejarano RDCS Procedure CPT: Indications: CP Cardiac Hx: Technical Quality: Technically difficult study Contrast 1: Definity Total Dose (mL): 2 Contrast 2: Total Dose (mL): MEASUREMENTS (Male / Female) Normal Values 2D ECHO LV Diastolic Diameter PLAX 4.1 cm 4.2 - 5.9 / 3.9 - 5.3 cm LV Systolic Diameter PLAX 2.5 cm IVS Diastolic Thickness 1.3 cm 0.6 - 1.0 / 0.6 - 0.9 cm LVPW Diastolic Thickness 1.2 cm 0.6 - 1.0 / 0.6 - 0.9 cm LV Relative Wall Thickness 0.6 RV Internal Dim ED PLAX 3.5 cm M-MODE Aortic Root Diameter MM 1.8 cm LA Systolic Diameter MM 4.4 cm LA Ao Ratio MM 2.5 AV Cusp Separation MM 1.2 cm DOPPLER AV Peak Velocity 173.0 cm/s AV Peak Gradient 12.0 mmHg AV Mean Velocity 119.9 cm/s AV Mean Gradient 6.7 mmHg AV Velocity Time Integral 36.0 cm LVOT Peak Velocity 101.8 cm/s LVOT Peak Gradient 4.1 mmHg MV Area PHT 2.8 cm??? Mitral E Point Velocity 60.8 cm/s Mitral A Point Velocity 90.9 cm/s Mitral E to A Ratio 0.7 MV Deceleration Time 267.6 ms TR Peak Velocity 248.2 cm/s TR Peak Gradient 24.6 mmHg Right Ventricular Systolic Press 28.0 mmHg FINDINGS Left Ventricle Mildly increased left ventricular wall thickness. Left ventricular cavity size normal. Normal left ventricular systolic function with no obvious regional wall motion abnormalities. Left ventricular ejection fraction is estimated at 55-60 %. Right Ventricle Mild right ventricular dilatation. Right ventricular systolic pressure within normal limits. Right Atrium Right atrium not well visualized. Left Atrium Normal left atrial size. Mitral Valve Structurally normal mitral valve. Mitral valve thickened. Trace to mild mitral regurgitation. Aortic Valve No aortic valve stenosis or regurgitation. Tricuspid Valve Structurally normal tricuspid valve. Mild tricuspid regurgitation. Pulmonic Valve Structurally normal pulmonic valve. Trace pulmonic regurgitation. Pericardium No pericardial effusion. Aorta Aortic annulus normal. CONCLUSIONS Technically very difficult study for interpretation Extremely poor acoustic windows Normal LV systolic function Poorly visualized intracardiac valves Previewed by: Dr. Den Haynes MD (Electronically Signed) Final Date: 20 August 2023 09:17
[2023-08-22] MEDS ORDERED: NON FORMULARY DRUG (Dulaglutide [Trulicity] 1.5 MG/0.5 ML Each) SQ SCH (22:43)
== END 2023-08-19 17:05 ==
LOC: EC 19:51 → 6NMEDSUR 22:41
PROVIDERS: ADMIT Internal Medicine; ATTEND Internal Medicine
DX: R07.89 Other chest pain (principal); I11.0 Hypertensive heart disease with heart failure; I50.9 Heart failure, unspecified; I25.10 Atherosclerotic heart disease of native coronary artery without angina pectoris; E11.9 Type 2 diabetes mellitus without complications; E78.5 Hyperlipidemia, unspecified; F03.A0 Unspecified dementia, mild, without behavioral disturbance, psychotic disturbance, mood disturbance, and anxiety; D64.9 Anemia, unspecified; R79.89 Other specified abnormal findings of blood chemistry; R79.1 Abnormal coagulation profile; G89.29 Other chronic pain; M79.604 Pain in right leg; R22.41 Localized swelling, mass and lump, right lower limb; I25.2 Old myocardial infarction; Z79.82 Long term (current) use of aspirin; Z79.85 Long-term (current) use of injectable non-insulin antidiabetic drugs; Z79.4 Long term (current) use of insulin; Z79.899 Other long term (current) drug therapy; Z91.030 Bee allergy status; Z91.041 Radiographic dye allergy status; Z88.5 Allergy status to narcotic agent; Z91.018 Allergy to other foods; Z91.013 Allergy to seafood; Z91.048 Other nonmedicinal substance allergy status; Z95.1 Presence of aortocoronary bypass graft; Z95.0 Presence of cardiac pacemaker; Z86.718 Personal history of other venous thrombosis and embolism; Z86.14 Personal history of Methicillin resistant Staphylococcus aureus infection; Z90.49 Acquired absence of other specified parts of digestive tract; Z98.890 Other specified postprocedural states
CPT/HCPCS: 96372; 96374; 96375; 99285; 36415; 93005; 93017; 85379; 83880; 80061; 80053; 83735; 84484 ×2; 85025; 85610; 85730; 71046; 71275; 78452; G0378 ×2; C8929; A9500; J1200; J2930; J1650; Q9957; J2785; Q9967; 93306